=== PATIENT | female | born 1980 | race Caucasian/White ===

== ENCOUNTER 2016-07-21 13:23 | Emergency (ER) | payer OTHER ==
--- NOTE | 2016-07-21 15:48 | DIAGNOSTIC IMAGING REPORT ---
PROCEDURE: CT UPPER EXT W/CONTRAST- LEFT INDICATION: PAIN upper extremity abscess TECHNIQUE: Axial CT images obtained through the left upper extremity following uncomplicated administration of 125 ml Isovue through 100 IV contrast. Coronal and sagittal reformations were created. COMPARISON: None. FINDINGS: Intramuscular, ill-defined, hypodense phlegmon beginning at the antecubital fossa. Within the biceps muscle, extending cranial to the antecubital fossa for length of approximately 8.5 cm, there is a more well defined, peripherally enhancing, encapsulated fluid collection measuring approximately 8.5 cm in length by 3.7 cm in width and 1.8 cm in depth. The fluid collection is lateral to the neurovascular bundle. Proximal to this fluid collection, there is ill-defined low density surrounding the neurovascular bundle, cecilia fascial and intramuscular inflammation and thickening involving the anterior, medial, and posterior muscle fascia, and moderate subcutaneous fat stranding to the level of the shoulder. In the axilla, there are multiple enlarged reactive lymph nodes. Deep veins appear grossly patent. Normal osseous structures. IMPRESSION: 1. 8.5 cm intramuscular abscess within the distal aspect of the biceps muscle. 2. There is inflammation of the entire biceps muscle and fascia. 3. Reactive axillary adenopathy. 4. Discussed with Micaela Jones in the emergency room.
--- NOTE | 2016-07-21 17:04 | ED NURSING NOTES ---
Clinical Report - Nurses [facility] [address] [place] [address] 07/21/2016 13:32 Patient: MIGNON SIDDIQI TRIAGE Triage time 13:39 Jul 21 2016. Chief Complaint: LEFT UPPER EXTREMITY PAIN, SWELLING and REDNESS. Location of symptoms- left arm (pt reports quitting heroin Easter, "I've given up the drug, just not the needle" pt has swelling to left upper arm, pt states "My arm was dirty from working in the garden and I knew right away I was going to get an infection"). Alert. No acute distress. SEPSIS SCREEN: Sepsis Screen: negative. Infection suspected/documented. Heart rate greater than 90 (PROJECT SCHEDULER at bedside). [place] COMA SCORE: [place] Coma Scale: 15- eyes open spontaneously (4); best verbal response- oriented x 4 (5); best motor response- obeys commands (6). --13:51 Nidia Bennett R.N. 13:39 07/21/16. BP: 112/49. HR: 102. RR: 17. O2 saturation: 100%. Temp: 98.9 F. Pain level now: 810. --13:51 Nidia Bennett R.N. Weight: 64.4 kg stated. Height/Length: 66 inches Per Patient. BMI: 22.9. --13:50 Nidia Bennett R.N. Medications LamoTRIgine Oral 75 mg, daily. --13:42 Nidia Bennett R.N. Sertraline HCl Oral 200 mg, daily. --13:43 Nidia Bennett R.N. Medication/allergy information source: the patient. --13:51 Nidia Bennett R.N. Allergies None. --13:43 Nidia Bennett R.N. History Arrived by private vehicle. Historian: patient. Accompanied by family. Location of injuries: left arm. Treatment SCALER: (aleve). PAST MEDICAL HX: Tetanus status: up-to-date. Immunizations: up-to-date. Last normal menstrual period was 6 weeks ago- 6 weeks. No contraception. SOCIAL HX: Light tobacco smoker- less than 1/2 a pack per day. History of heavy IV drug use: heroin, methamphetamines, marijuana. No alcohol use. No infectious disease exposure. ABUSE ASSESSMENT: No report of abuse. SELF HARM ASSESSMENT: A self harm assessment was performed. The patient answered "no" to the question "Have you recently felt down, depressed, or hopeless?", "Have you noticed less interest or pleasure in doing things?", "Do you have thoughts of harming or killing yourself?", "Are you here because you tried to hurt yourself?", "Have you ever tried to hurt yourself before today?", "Have you recently had thoughts about harming or killing others?" and "Do you have any dangerous items in your possession?". FALL RISK ASSESSMENT: Fall risk assessment completed. No fall risk identified. NUTRITIONAL RISK ASSESSMENT: The nutritional risk assessment revealed no deficiencies. FUNCTIONAL ASSESSMENT: Functional assessment: no impairments noted. LEARNING NEEDS ASSESSMENT: The learning needs assessment revealed no barriers. SKIN INTEGRITY ASSESSMENT: Skin integrity risk assessment completed. No skin integrity risk identified. --13:51 Nidia Bennett R.N. PROBLEMS: Depression. Cellulitis. MRSA Infection. Vaginitis. High risk preg, twins . Anxiety . Hip dysplasia, defect. . --13:44 Nidia Bennett R.N. ADDITIONAL SURGERIES: . Hip Surgery. Shoulder Surgery. --13:44 Nidia Bennett R.N. Interventions ID band on patient. --13:51 Nidia Bennett R.N. NURSING PROGRESS NOTES 14:13 07/21/2016 Site #1 started via IV in the right forearm with an 20g angiocath; one attempt. Blood drawn: rainbow set and cultures x1. Labeled in the presence of the patient and sent to the lab. Saline lock flushed with 10 mL saline. --14:18 Nidia Bennett R.N. ( Pt up to bathroom twice unable to provided urine speci at this time, mom remains at bedside, waiting serum preg prior to CT, pt reports possibility of . care released). --14:41 Nidia Bennett R.N. 15:16 07/21/2016 Toradol IVP 30 mg given over 30 second(s) via site #1. Allergies verified and confirmed 5 rights. IV patency established. IV site checked: no pain, redness, or swelling. IV flushed thoroughly pre- and post-medication administration. IVP given by RN. --15:16 Janina Calvo R.N. 15:19 07/21/2016 Started 1 gm of Vancomycin IVPB in bag #1 200 mL; at 200 mL/hr over 1 hour(s) via site #1 via IV pump. Allergies verified and confirmed 5 rights. IV patency established. IV site checked: no pain, redness, or swelling. IV flushed thoroughly pre- and post-medication administration. --15:19 Janina Calvo R.N. 15:20 07/21/16. BP: 113/59 (regular adult cuff) taken on the right arm, via an automated monitor, while lying. HR: 96. RR: 17. O2 saturation: 98% on room air. Temp: 98.8 F (oral). Pain level now: 12/14. --15:25 Janina Calvo R.N. Reassurance given. The patient is calm. GENERAL / NEURO / PSYCH: The patient reports pain. Denies numbness or tingling. Alert. Oriented X 4. GI / : Denies nausea or vomiting. Two patient identifiers checked. Call light placed in reach. --15:25 Janina Calvo R.N. 15:54 07/21/2016 Site #1 reassessed; patent, infusing well and no signs of infection or infiltration. --15:54 Janina Calvo R.N. Extremity elevated. Reassurance given. The patient is calm. Overall patient status is the same- she states feels the same. ( Pt was aware and attempted to be kept NPO, but pt decided to "eat 1/2 orange because I was hungry" updated on the need for surgery, asked pt to be NPO again. PROJECT SCHEDULER Robert aware, will monitor). GENERAL / NEURO / PSYCH: The patient reports pain. Alert. Oriented X 4. GI / : Denies nausea or vomiting. --15:58 Janina Calvo R.N. 16:56 07/21/16. BP: 124/78 (regular adult cuff) taken on the right arm, via an automated monitor, while sitting. HR: 87. RR: 15. O2 saturation: 98% on room air. Temp: 98.8 F. Pain level now: 11/14. --16:56 Janina Calvo R.N. Reassurance given. The patient is calm and resting quietly. Overall patient status is the same- she states feels the same. ( waiting on transfer to [facility]). GENERAL / NEURO / PSYCH: The patient reports pain. GI / : Denies nausea. Patient identifiers checked. Call light placed in reach. --16:56 Janina Calvo R.N. 16:32 07/21/2016 Vancomycin IVPB Discontinued: bag #1 infused. Total amount infused: 200 mL. IV patency established. IV site checked: no pain, redness, or swelling. IV flushed thoroughly. --16:57 Janina Calvo R.N. 16:55 07/21/2016 Zofran (Ondansetron HCl) IVP 4 mg given over 2 minute(s) via site #1. Allergies verified and confirmed 5 rights. IV patency established. IV site checked: no pain, redness, or swelling. IV flushed thoroughly pre- and post-medication administration. IVP given by RN. --16:55 Janina Calvo R.N. 16:55 07/21/2016 Dilaudid (HYDROmorphone HCl PF) IVP 1 mg given over 30 second(s) via site #1. Allergies verified, confirmed 5 rights and sedative warning given to the patient. IV patency established. IV site checked: no pain, redness, or swelling. IV flushed thoroughly pre- and post-medication administration. IVP given by RN. --16:55 Janina Calvo R.N. 17:30 07/21/16. BP: 95/57. HR: 87. RR: 18. O2 saturation: 100%. Temp: 98.4 F. Pain level now: 09/13. --17:34 Colette Denise R.N. 17:37 COBRA form signed by pt , EMS crew here to transport pt. --17:37 Colette Denise R.N. 15:42 07/21/2016 Toradol IVP Response: no adverse reaction symptoms are the same. The patient feels the same. --18:07 Janina Calvo R.N. 17:40 07/21/2016 Zofran IVP Response: no adverse reaction symptoms have improved. --18:05 Janina Calvo R.N. 17:41 07/21/2016 Dilaudid IVP Response: no adverse reaction pain is improving. Symptoms have improved the patient feels the same. --18:06 Janina Calvo R.N. DISPOSITION / DISCHARGE 17:45 07/21/2016 Site #1 reassessed; patent, infusing well and no signs of infection or infiltration. Good blood return present. --18:00 Janina Calvo R.N. Departure time: 1753 PM. Condition at departure: unchanged and stable. The goals identified in the patient's plan of care were met. Transferred to [facility]. Summary of care provided to transport team and transfer facility via paper and fax (1753 PM). Transported via ambulance by nurse. Report was given to a nurse via a phone call. Report included patient's care, treatment, medications, reviewed medication reconcilliation, and condition (including any recent changes or anticipated changes). All questions were answered. Report was acknowledged and care was transferred. Mother notified of admission. ( Pt transferred via [facility] to [facility] via stretcher safely, NPO status tried to be maintained by me and facility but pt states "we are starving her and unable to smoke" offered a patch but refuses. IV site intact. VSS. Report given to rail transportation tabeler Zarin and receiving facility Aakash Hinojosa at ED at [facility]). FALL RISK ASSESSMENT: Fall risk assessment completed. No fall risk identified. --18:04 Janina Calvo R.N. 17:45 07/21/16. BP: 95/57 (regular adult cuff) taken on the right arm, via an automated monitor, while sitting. HR: 87. RR: 18. O2 saturation: 98% on room air. Temp: 98.4 F (oral). Pain level now: 09/13. --18:04 Janina Calvo R.N. Locked/Released at 07/21/2016 18:07 by Janina Calvo R.N.
--- NOTE | 2016-07-21 17:04 | ED CLINICAL REPORT ---
Clinical Report - Physicians/Mid Levels [facility] [address] [place] [address] 07/21/2016 13:32 Patient: MINGON SIDDIQI Time Seen: 1338; upon arrival, initial patient contact, initial documentation, patient care assumed. Arrived- By private vehicle. Historian- patient. HISTORY OF PRESENT ILLNESS Chief Complaint: TENDER AREA. This started about 3 days ago and is still present and worsening. Not itchy or burning. It is described as painful. It has been located on the left arm. A cause has been identified (shot up with iv heroin x4 days ago, and states as soon as she did it she knew arm would get infected because it felt different). Similar symptoms previously: Occasionally, milder. Recent medical care: Not recently seen/assessed. REVIEW OF SYSTEMS No fever, difficulty breathing, chest pain, diarrhea or vomiting. All systems otherwise negative, except as recorded above. PAST HISTORY See nurses notes. PROBLEMS: Depression. Cellulitis. MRSA Infection. Vaginitis. High risk preg, twins . Anxiety . Hip dysplasia, defect. . --13:44 Nidia Bennett RValentín. ADDITIONAL SURGERIES: . Hip Surgery. Shoulder Surgery. --13:44 Nidia Bennett RValentín. SOCIAL HISTORY Light tobacco smoker. History of heavy IV drug use: heroin, methamphetamines, marijuana. Recently used drugs days ago. No alcohol use. No recent travel. Is a local resident. FAMILY HISTORY Negative. ADDITIONAL NOTES The nursing notes have been reviewed with agreement regarding the chief complaint, HPI, ROS, PMH and patient medications and allergies. PHYSICAL EXAM Vital Signs: 07/21/2016 13:39 BP: 112/49. HR: 102. RR: 17. O2 saturation: 100%. Temp: 98.9 F. Pain level now: 8/10. Have been reviewed as abnormal and appear to be correct. Blood pressure normal. Tachycardic. Respiratory rate normal. Temperature normal. Oxygen saturation normal. Appearance: Alert. Oriented X3. No acute distress. Eyes: Pupils equal, round and reactive to light. Conjunctivae and eyelids normal. ENT: Nose normal. Neck: Neck supple. CVS: Normal heart rate and rhythm. Heart sounds normal. Respiratory: No respiratory distress. Breath sounds normal. Chest nontender. Abdomen: Nontender. No organomegaly. Skin: Skin warm and dry. Abnormal skin color. No rash. Normal skin turgor. Large area of cellulitis with tenderness, erythema and warmth to left arm (L upper arm appears twice the size as R, circumferential erythema). No lymphangitis. Extremities: Normal external inspection. Extremities nontender. Neuro: Oriented X 3. No motor deficit. No sensory deficit. LABS, X-RAYS, AND EKG Laboratory Tests: UA-Culture if indicated: (VAN: 07/21/2016 15:20) ( [facility] 07/21/2016 15:42) Final results Test Result Flag Units (Reference) URINE COLOR STRAW URINE APPEARANCE CLEAR URINE GLUCOSE NEGATIVE (NEGATIVE) URINE BILIRUBIN NEGATIVE (NEGATIVE) URINE KETONE NEGATIVE (NEGATIVE) URINE SPECIFIC GRAVITY <= 1.005 L (1.010-1.030) URINE PH 5.5 (5.0-8.0) URINE PROTEIN NEGATIVE (NEGATIVE) URINE UROBILINOGEN 0.2 EU/dL (0.2-1.0) URINE NITRITE NEGATIVE (NEGATIVE) URINE BLOOD TRACE-INTACT (NEGATIVE) URINE LEUK ESTERASE NEGATIVE (NEGATIVE) URINE RBC RARE rbc/hpf (0-1) URINE WBC NONE SEEN wbc/hpf (0-1) URINE EPITHELIAL CELLS RARE EPI/hpf (0-5) URINE BACTERIA NONE SEEN (NONE SEEN) URINE COMMENT CULT NOT INDICATED URINE CULTURES ARE SET-UP BASED ON THE FOLLOWING CRITERIA:POSITIVE NITRITEPOSITIVE LEUKOCYTE ESTERASEGREATER THAN 10 WHITE BLOOD CELLSMODERATE (2+) OR GREATER BACTERIA Serum Qualitative: (VAN: 07/21/2016 14:11) ( [facility] 07/21/2016 14:41) Final results Test Result Flag Units (Reference) , SERUM NEGATIVE CBC w Diff: (VAN: 07/21/2016 14:11) ( [facility] 07/21/2016 14:32) Final results Test Result Flag Units (Reference) WHITE BLOOD COUNT 22.5 H K/uL (4.5-11.5) RED BLOOD COUNT 4.19 M/uL (4.00-5.20) HEMOGLOBIN 12.0 gm/dL (12.0-16.0) HEMATOCRIT 34.9 L % (36.0-46.0) MEAN CELL VOLUME 83 fL (80-100) MEAN CORPUSCULAR HGB 29 pg (26-34) MEAN CORPUSCULAR HGB CONC 34 g/dL (31-37) RED CELL DISTRIBUTION WIDTH 14.0 % (11.6-14.8) PLATELET COUNT 229 K/uL (150-400) NEUTROPHIL % 86.5 H % (50-75) LYMPH % 8.3 L % (25-40) MONO % 4.9 % (3-14) EOSINOPHIL % 0.3 % (0-4) BASOPHIL % 0 % (0-2) Lactate, Serum: (VAN: 07/21/2016 14:11) ( [facility] 07/21/2016 14:56) Final results Test Result Flag Units (Reference) LACTIC ACID 1.4 mmol/L (0.4-2.0) [id number]: (VAN: 07/21/2016 14:11) ( [facility] 07/21/2016 15:09) Final results Test Result Flag Units (Reference) PROCALCITONIN 0.9 H ng/mL (0-0.5) PCT Concentration: Interpretation : Risk/option for action PCT <=0.5 ng/mL : Systemic : Low risk forinfection(sepsis): progression to severeis not likely. : systemic infection.Local bacterial : CAUTION-PCT levelsinfection is : below 0.5 ng/mL do notpossible. : exclude an infection,because localizedinfections (withoutsystemic signs) may beassociated with suchlow levels. If PCT ismeasured very earlyafter a bacterialchallenge (usually <6hours), these valuesmay still be low. Inthis case PCT shouldbe re-assessed 6-24hours later. PCT >0.5 and : Systemic infection: Moderate risk for<= 2 ng/mL : (sepsis) is : progression to severepossible, but : systemic infection.other conditions : The patient should beare known to : closely monitoredelevate PCT. : both clinically andby re-assessing PCTwithin 6-24 hours. PCT > 2 ng/mL : Systemic infection: High risk for(sepsis) is likely: progression to severeunless other : systemic infection.causes are known. : PCT >= 10 ng/mL : Important systemic: High likelihood ofinflammatory : severe sepsis orresponse, almost : septic shock.exclusively due to:severe bacterial :sepsis or septic :shock. : CMP: (VAN: 07/21/2016 14:11) ( MsgRcvd 07/21/2016 14:47) Final results Test Result Flag Units (Reference) GLUCOSE 77 mg/dL (70-110) BUN 12 mg/dL (7-18) CREATININE 0.8 mg/dL (0.6-1.3) Estimated GFR >60 mL/min Estimated GFR- >60 mL/min Note: Persistent reduction over 3 months in eGFR<60 mL/min/1.73 m2 defines CKD. Patients with eGFR values>=60 mL/min/1.73 m2 may also have CKD if evidence ofpersistent proteinuria. Additional information may be foundat www.[email or web address].org. SODIUM 135 L mmol/L (136-145) POTASSIUM 3.0 L mmol/L (3.5-5.1) CHLORIDE 98 mmol/L (98-107) CARBON DIOXIDE 26 mmol/L (21-32) CALCIUM 8.3 L mg/dL (8.5-10.1) TOTAL PROTEIN 7.4 g/dL (6.4-8.2) ALBUMIN 3.4 g/dL (3.3-5.0) BILIRUBIN, TOTAL 0.6 mg/dL (0.0-1.0) ALKALINE PHOSPHATASE 77 U/L (46-116) AST (SGOT) 24 U/L (15-37) ALT (SGPT) 30 U/L (12-78) . Note - Tests: (CT L Upper Ext IMPRESSION: 1. 8.5 cm intramuscular abscess within the distal aspect of the biceps muscle. 2. There is inflammation of the entire biceps muscle and fascia. 3. Reactive axillary adenopathy. 4. Discussed with Micaela Jones in the emergency room. Electronically Final signed by:Lin Lee MD 07/21/2016 3:48:02 PM). PROGRESS AND PROCEDURES Course of Care: had discussion with pt upon exam about admit to hospital would be needed for iv abx and more tx, pt did agree to stay, but hesitant 1525. pt updated with current lab results, awaiting ct results to determine if pt would be admitted to surgery or medicine 1550. Spoke to Dr Simmons re admit, says pt should go to general surgery not ortho 1553. Spoke to surgeon, Dr Larios, willing to consult, but wants hospitalist to admit 1556. Spoke to hospitalist Dr Abrams, no more admits, he is full having film or tape librarian contact [facility] to see about transfer 1615. Will be at least hour before [facility] knows if they have beds, currently full, awaiting dc's Spoke to hotel houseman Bill at [facility] re transfer, will check with surgeon and call us back, having film or tape librarian push ct images 16:50 07/21/16. pt updated with transfer plan, ct results, need for surgery 1655. Spoke to Mark at [facility], and Dr. Zhou, ER MD, pt's case reviewed with him and he will accept and consult surgery if needed, pt will be er to er transfer transfer form completed and asked [facility] to call ems for transport 1740. transport team here. 07/21/2016 15:20 BP: 113/59. HR: 96. RR: 17. O2 saturation: 98%. Temp: 98.8 F. Pain level now: 10/10. Vital Signs: have been reviewed as normal and appear to be correct. Patient and family counseled in person regarding the patient's stable condition, test results, diagnosis and need for admission and surgery. Differential Diagnosis: Other possible considerations: cellulitis, abscess, mrsa, substance abuse, compartment syndrome, sepsis. Above considerations are based on history, physical exam, reassessment, laboratory data and other information. Differential diagnosis was discussed with patient. Disposition: Benefits, risks and alternatives to transfer explained to patient and family. Transferred to [facility]. Summary of care provided to transport team and transfer facility via paper and digital media. 17:04. Condition: good and stable. CLINICAL IMPRESSION 07/21/2016 16:56 BP: 124/78. HR: 87. RR: 15. O2 saturation: 98%. Temp: 98.8 F. Pain level now: 9/10. Vital Signs: have been reviewed as normal and appear to be correct. Single deep abscess to the left upper extremity. (Electronically signed by Micaela Jones A.R.N.P. 07/21/2016 21:40)
--- NOTE | 2016-07-21 17:04 | ED CLINICAL REPORT ---
Clinical Report - Physicians/Mid Levels [facility] [address] [place] [address] 07/21/2016 13:32 Patient: MIGNON SIDDIQI Time Seen: 1338; upon arrival, initial patient contact, initial documentation, patient care assumed. Arrived- By private vehicle. Historian- patient. HISTORY OF PRESENT ILLNESS Chief Complaint: TENDER AREA. This started about 3 days ago and is still present and worsening. Not itchy or burning. It is described as painful. It has been located on the left arm. A cause has been identified (shot up with iv heroin x4 days ago, and states as soon as she did it she knew arm would get infected because it felt different). Similar symptoms previously: Occasionally, milder. Recent medical care: Not recently seen/assessed. REVIEW OF SYSTEMS No fever, difficulty breathing, chest pain, diarrhea or vomiting. All systems otherwise negative, except as recorded above. PAST HISTORY See nurses notes. PROBLEMS: Depression. Cellulitis. MRSA Infection. Vaginitis. High risk preg, twins . Anxiety . Hip dysplasia, defect. . --13:44 Nidia Bennett RValentín. ADDITIONAL SURGERIES: . Hip Surgery. Shoulder Surgery. --13:44 Nidia Bennett RValentín. SOCIAL HISTORY Light tobacco smoker. History of heavy IV drug use: heroin, methamphetamines, marijuana. Recently used drugs days ago. No alcohol use. No recent travel. Is a local resident. FAMILY HISTORY Negative. ADDITIONAL NOTES The nursing notes have been reviewed with agreement regarding the chief complaint, HPI, ROS, PMH and patient medications and allergies. PHYSICAL EXAM Vital Signs: 07/21/2016 13:39 BP: 112/49. HR: 102. RR: 17. O2 saturation: 100%. Temp: 98.9 F. Pain level now: 8/10. Have been reviewed as abnormal and appear to be correct. Blood pressure normal. Tachycardic. Respiratory rate normal. Temperature normal. Oxygen saturation normal. Appearance: Alert. Oriented X3. No acute distress. Eyes: Pupils equal, round and reactive to light. Conjunctivae and eyelids normal. ENT: Nose normal. Neck: Neck supple. CVS: Normal heart rate and rhythm. Heart sounds normal. Respiratory: No respiratory distress. Breath sounds normal. Chest nontender. Abdomen: Nontender. No organomegaly. Skin: Skin warm and dry. Abnormal skin color. No rash. Normal skin turgor. Large area of cellulitis with tenderness, erythema and warmth to left arm (L upper arm appears twice the size as R, circumferential erythema). No lymphangitis. Extremities: Normal external inspection. Extremities nontender. Neuro: Oriented X 3. No motor deficit. No sensory deficit. LABS, X-RAYS, AND EKG Laboratory Tests: UA-Culture if indicated: (VAN: 07/21/2016 15:20) ( [facility] 07/21/2016 15:42) Final results Test Result Flag Units (Reference) URINE COLOR STRAW URINE APPEARANCE CLEAR URINE GLUCOSE NEGATIVE (NEGATIVE) URINE BILIRUBIN NEGATIVE (NEGATIVE) URINE KETONE NEGATIVE (NEGATIVE) URINE SPECIFIC GRAVITY <= 1.005 L (1.010-1.030) URINE PH 5.5 (5.0-8.0) URINE PROTEIN NEGATIVE (NEGATIVE) URINE UROBILINOGEN 0.2 EU/dL (0.2-1.0) URINE NITRITE NEGATIVE (NEGATIVE) URINE BLOOD TRACE-INTACT (NEGATIVE) URINE LEUK ESTERASE NEGATIVE (NEGATIVE) URINE RBC RARE rbc/hpf (0-1) URINE WBC NONE SEEN wbc/hpf (0-1) URINE EPITHELIAL CELLS RARE EPI/hpf (0-5) URINE BACTERIA NONE SEEN (NONE SEEN) URINE COMMENT CULT NOT INDICATED URINE CULTURES ARE SET-UP BASED ON THE FOLLOWING CRITERIA:POSITIVE NITRITEPOSITIVE LEUKOCYTE ESTERASEGREATER THAN 10 WHITE BLOOD CELLSMODERATE (2+) OR GREATER BACTERIA Serum Qualitative: (VAN: 07/21/2016 14:11) ( [facility] 07/21/2016 14:41) Final results Test Result Flag Units (Reference) , SERUM NEGATIVE CBC w Diff: (VAN: 07/21/2016 14:11) ( [facility] 07/21/2016 14:32) Final results Test Result Flag Units (Reference) WHITE BLOOD COUNT 22.5 H K/uL (4.5-11.5) RED BLOOD COUNT 4.19 M/uL (4.00-5.20) HEMOGLOBIN 12.0 gm/dL (12.0-16.0) HEMATOCRIT 34.9 L % (36.0-46.0) MEAN CELL VOLUME 83 fL (80-100) MEAN CORPUSCULAR HGB 29 pg (26-34) MEAN CORPUSCULAR HGB CONC 34 g/dL (31-37) RED CELL DISTRIBUTION WIDTH 14.0 % (11.6-14.8) PLATELET COUNT 229 K/uL (150-400) NEUTROPHIL % 86.5 H % (50-75) LYMPH % 8.3 L % (25-40) MONO % 4.9 % (3-14) EOSINOPHIL % 0.3 % (0-4) BASOPHIL % 0 % (0-2) Lactate, Serum: (VAN: 07/21/2016 14:11) ( [facility] 07/21/2016 14:56) Final results Test Result Flag Units (Reference) LACTIC ACID 1.4 mmol/L (0.4-2.0) [id number]: (VAN: 07/21/2016 14:11) ( [facility] 07/21/2016 15:09) Final results Test Result Flag Units (Reference) PROCALCITONIN 0.9 H ng/mL (0-0.5) PCT Concentration: Interpretation : Risk/option for action PCT <=0.5 ng/mL : Systemic : Low risk forinfection(sepsis): progression to severeis not likely. : systemic infection.Local bacterial : CAUTION-PCT levelsinfection is : below 0.5 ng/mL do notpossible. : exclude an infection,because localizedinfections (withoutsystemic signs) may beassociated with suchlow levels. If PCT ismeasured very earlyafter a bacterialchallenge (usually <6hours), these valuesmay still be low. Inthis case PCT shouldbe re-assessed 6-24hours later. PCT >0.5 and : Systemic infection: Moderate risk for<= 2 ng/mL : (sepsis) is : progression to severepossible, but : systemic infection.other conditions : The patient should beare known to : closely monitoredelevate PCT. : both clinically andby re-assessing PCTwithin 6-24 hours. PCT > 2 ng/mL : Systemic infection: High risk for(sepsis) is likely: progression to severeunless other : systemic infection.causes are known. : PCT >= 10 ng/mL : Important systemic: High likelihood ofinflammatory : severe sepsis orresponse, almost : septic shock.exclusively due to:severe bacterial :sepsis or septic :shock. : CMP: (VAN: 07/21/2016 14:11) ( MsgRcvd 07/21/2016 14:47) Final results Test Result Flag Units (Reference) GLUCOSE 77 mg/dL (70-110) BUN 12 mg/dL (7-18) CREATININE 0.8 mg/dL (0.6-1.3) Estimated GFR >60 mL/min Estimated GFR- >60 mL/min Note: Persistent reduction over 3 months in eGFR<60 mL/min/1.73 m2 defines CKD. Patients with eGFR values>=60 mL/min/1.73 m2 may also have CKD if evidence ofpersistent proteinuria. Additional information may be foundat www.kidney.org. SODIUM 135 L mmol/L (136-145) POTASSIUM 3.0 L mmol/L (3.5-5.1) CHLORIDE 98 mmol/L (98-107) CARBON DIOXIDE 26 mmol/L (21-32) CALCIUM 8.3 L mg/dL (8.5-10.1) TOTAL PROTEIN 7.4 g/dL (6.4-8.2) ALBUMIN 3.4 g/dL (3.3-5.0) BILIRUBIN, TOTAL 0.6 mg/dL (0.0-1.0) ALKALINE PHOSPHATASE 77 U/L (46-116) AST (SGOT) 24 U/L (15-37) ALT (SGPT) 30 U/L (12-78) . Note - Tests: (CT L Upper Ext IMPRESSION: 1. 8.5 cm intramuscular abscess within the distal aspect of the biceps muscle. 2. There is inflammation of the entire biceps muscle and fascia. 3. Reactive axillary adenopathy. 4. Discussed with Micaela Jones in the emergency room. Electronically Final signed by:Lin Lee MD 07/21/2016 3:48:02 PM). PROGRESS AND PROCEDURES Course of Care: had discussion with pt upon exam about admit to hospital would be needed for iv abx and more tx, pt did agree to stay, but hesitant 1525. pt updated with current lab results, awaiting ct results to determine if pt would be admitted to surgery or medicine 1550. Spoke to Dr Simmons re admit, says pt should go to general surgery not ortho 1553. Spoke to surgeon, Dr Larios, willing to consult, but wants hospitalist to admit 1556. Spoke to hospitalist Dr Abrams, no more admits, he is full having bereavement coordinator contact [facility] to see about transfer 1615. Will be at least hour before [facility] knows if they have beds, currently full, awaiting dc's Spoke to transfer and pumphouse operator Bill at [facility] re transfer, will check with surgeon and call us back, having bereavement coordinator push ct images 16:50 07/21/16. pt updated with transfer plan, ct results, need for surgery 1655. Spoke to Mark at [facility], and Dr. Zhou, ER MD, pt's case reviewed with him and he will accept and consult surgery if needed, pt will be er to er transfer [place] [facility] 1740. transport team here. 07/21/2016 15:20 BP: 113/59. HR: 96. RR: 17. O2 saturation: 98%. Temp: 98.8 F. Pain level now: 10/10. Vital Signs: have been reviewed as normal and appear to be correct. Patient and family counseled in person regarding the patient's stable condition, test results, diagnosis and need for admission and surgery. Differential Diagnosis: Other possible considerations: cellulitis, abscess, mrsa, substance abuse, compartment syndrome, sepsis. Above considerations are based on history, physical exam, reassessment, laboratory data and other information. Differential diagnosis was discussed with patient. Disposition: Benefits, risks and alternatives to transfer explained to patient and family. Transferred to [facility]. Summary of care provided to transport team and transfer facility via paper and digital media. 17:04. Condition: good and stable. CLINICAL IMPRESSION 07/21/2016 16:56 BP: 124/78. HR: 87. RR: 15. O2 saturation: 98%. Temp: 98.8 F. Pain level now: 9/10. Vital Signs: have been reviewed as normal and appear to be correct. Single deep abscess to the left upper extremity. (Electronically signed by Micaela Jones A.R.N.P. 07/21/2016 21:40)
--- NOTE | 2016-07-21 17:04 | ED NURSING NOTES ---
Clinical Report - Nurses [facility] [address] [place] [address] 07/21/2016 13:32 Patient: MIGNON SIDDIQI TRIAGE Triage time 13:39 Jul 21 2016. Chief Complaint: LEFT UPPER EXTREMITY PAIN, SWELLING and REDNESS. Location of symptoms- left arm (pt reports quitting heroin Easter, "I've given up the drug, just not the needle" pt has swelling to left upper arm, pt states "My arm was dirty from working in the garden and I knew right away I was going to get an infection"). Alert. No acute distress. SEPSIS SCREEN: Sepsis Screen: negative. Infection suspected/documented. Heart rate greater than 90 (DORMITORY SUPERVISOR at bedside). SYDNEY COMA SCORE: Marana Coma Scale: 15- eyes open spontaneously (4); best verbal response- oriented x 4 (5); best motor response- obeys commands (6). --13:51 Nidia Bennett R.N. 13:39 07/21/16. BP: 112/49. HR: 102. RR: 17. O2 saturation: 100%. Temp: 98.9 F. Pain level now: 810. --13:51 Nidia Bennett R.N. Weight: 64.4 kg stated. Height/Length: 66 inches Per Patient. BMI: 22.9. --13:50 Nidia Bennett R.N. Medications LamoTRIgine Oral 75 mg, daily. --13:42 Nidia Bennett R.N. Sertraline HCl Oral 200 mg, daily. --13:43 Nidia Bennett R.N. Medication/allergy information source: the patient. --13:51 Nidia Bennett R.N. Allergies None. --13:43 Nidia Bennett R.N. History Arrived by private vehicle. Historian: patient. Accompanied by family. Location of injuries: left arm. Treatment TOOL MAINTENANCE WORKER: (aleve). PAST MEDICAL HX: Tetanus status: up-to-date. Immunizations: up-to-date. Last normal menstrual period was 6 weeks ago- 6 weeks. No contraception. SOCIAL HX: Light tobacco smoker- less than 1/2 a pack per day. History of heavy IV drug use: heroin, methamphetamines, marijuana. No alcohol use. No infectious disease exposure. ABUSE ASSESSMENT: No report of abuse. SELF HARM ASSESSMENT: A self harm assessment was performed. The patient answered "no" to the question "Have you recently felt down, depressed, or hopeless?", "Have you noticed less interest or pleasure in doing things?", "Do you have thoughts of harming or killing yourself?", "Are you here because you tried to hurt yourself?", "Have you ever tried to hurt yourself before today?", "Have you recently had thoughts about harming or killing others?" and "Do you have any dangerous items in your possession?". FALL RISK ASSESSMENT: Fall risk assessment completed. No fall risk identified. NUTRITIONAL RISK ASSESSMENT: The nutritional risk assessment revealed no deficiencies. FUNCTIONAL ASSESSMENT: Functional assessment: no impairments noted. LEARNING NEEDS ASSESSMENT: The learning needs assessment revealed no barriers. SKIN INTEGRITY ASSESSMENT: Skin integrity risk assessment completed. No skin integrity risk identified. --13:51 Nidia Bennett R.N. PROBLEMS: Depression. Cellulitis. MRSA Infection. Vaginitis. High risk preg, twins . Anxiety . Hip dysplasia, defect. . --13:44 Nidia Bennett R.N. ADDITIONAL SURGERIES: . Hip Surgery. Shoulder Surgery. --13:44 Nidia Bennett R.N. Interventions ID band on patient. --13:51 Nidia Bennett R.N. NURSING PROGRESS NOTES 14:13 07/21/2016 Site #1 started via IV in the right forearm with an 20g angiocath; one attempt. Blood drawn: rainbow set and cultures x1. Labeled in the presence of the patient and sent to the lab. Saline lock flushed with 10 mL saline. --14:18 Nidia Bennett R.N. ( Pt up to bathroom twice unable to provided urine speci at this time, mom remains at bedside, waiting serum preg prior to CT, pt reports possibility of . care released). --14:41 Nidia Bennett R.N. 15:16 07/21/2016 Toradol IVP 30 mg given over 30 second(s) via site #1. Allergies verified and confirmed 5 rights. IV patency established. IV site checked: no pain, redness, or swelling. IV flushed thoroughly pre- and post-medication administration. IVP given by RN. --15:16 Janina Calvo R.N. 15:19 07/21/2016 Started 1 gm of Vancomycin IVPB in bag #1 200 mL; at 200 mL/hr over 1 hour(s) via site #1 via IV pump. Allergies verified and confirmed 5 rights. IV patency established. IV site checked: no pain, redness, or swelling. IV flushed thoroughly pre- and post-medication administration. --15:19 Janina Calvo R.N. 15:20 07/21/16. BP: 113/59 (regular adult cuff) taken on the right arm, via an automated monitor, while lying. HR: 96. RR: 17. O2 saturation: 98% on room air. Temp: 98.8 F (oral). Pain level now: 12/14. --15:25 Janina Calvo R.N. Reassurance given. The patient is calm. GENERAL / NEURO / PSYCH: The patient reports pain. Denies numbness or tingling. Alert. Oriented X 4. GI / : Denies nausea or vomiting. Two patient identifiers checked. Call light placed in reach. --15:25 Janina Calvo R.N. 15:54 07/21/2016 Site #1 reassessed; patent, infusing well and no signs of infection or infiltration. --15:54 Janina Calvo R.N. Extremity elevated. Reassurance given. The patient is calm. Overall patient status is the same- she states feels the same. ( Pt was aware and attempted to be kept NPO, but pt decided to "eat 1/2 orange because I was hungry" updated on the need for surgery, asked pt to be NPO again. DORMITORY SUPERVISOR Robert aware, will monitor). GENERAL / NEURO / PSYCH: The patient reports pain. Alert. Oriented X 4. GI / : Denies nausea or vomiting. --15:58 Janina Calvo R.N. 16:56 07/21/16. BP: 124/78 (regular adult cuff) taken on the right arm, via an automated monitor, while sitting. HR: 87. RR: 15. O2 saturation: 98% on room air. Temp: 98.8 F. Pain level now: 11/14. --16:56 Janina Calvo R.N. Reassurance given. The patient is calm and resting quietly. Overall patient status is the same- she states feels the same. ( waiting on transfer to [facility]). GENERAL / NEURO / PSYCH: The patient reports pain. GI / : Denies nausea. Patient identifiers checked. Call light placed in reach. --16:56 Janina Calvo R.N. 16:32 07/21/2016 Vancomycin IVPB Discontinued: bag #1 infused. Total amount infused: 200 mL. IV patency established. IV site checked: no pain, redness, or swelling. IV flushed thoroughly. --16:57 Janina Calvo R.N. 16:55 07/21/2016 Zofran (Ondansetron HCl) IVP 4 mg given over 2 minute(s) via site #1. Allergies verified and confirmed 5 rights. IV patency established. IV site checked: no pain, redness, or swelling. IV flushed thoroughly pre- and post-medication administration. IVP given by RN. --16:55 Janina Calvo R.N. 16:55 07/21/2016 Dilaudid (HYDROmorphone HCl PF) IVP 1 mg given over 30 second(s) via site #1. Allergies verified, confirmed 5 rights and sedative warning given to the patient. IV patency established. IV site checked: no pain, redness, or swelling. IV flushed thoroughly pre- and post-medication administration. IVP given by RN. --16:55 Janina Calvo R.N. 17:30 07/21/16. BP: 95/57. HR: 87. RR: 18. O2 saturation: 100%. Temp: 98.4 F. Pain level now: 09/13. --17:34 Colette Denise R.N. 17:37 COBRA form signed by pt , EMS crew here to transport pt. --17:37 Colette Denise R.N. 15:42 07/21/2016 Toradol IVP Response: no adverse reaction symptoms are the same. The patient feels the same. --18:07 Janina Calvo R.N. 17:40 07/21/2016 Zofran IVP Response: no adverse reaction symptoms have improved. --18:05 Janina Calvo R.N. 17:41 07/21/2016 Dilaudid IVP Response: no adverse reaction pain is improving. Symptoms have improved the patient feels the same. --18:06 Janina Calvo R.N. DISPOSITION / DISCHARGE 17:45 07/21/2016 Site #1 reassessed; patent, infusing well and no signs of infection or infiltration. Good blood return present. --18:00 Janina Calvo R.N. Departure time: 1753 PM. Condition at departure: unchanged and stable. The goals identified in the patient's plan of care were met. Transferred to [facility]. Summary of care provided to transport team and transfer facility via paper and fax (1753 PM). Transported via ambulance by nurse. Report was given to a nurse via a phone call. Report included patient's care, treatment, medications, reviewed medication reconcilliation, and condition (including any recent changes or anticipated changes). All questions were answered. Report was acknowledged and care was transferred. Mother notified of admission. ( Pt transferred via [facility] to [facility] via stretcher safely, NPO status tried to be maintained by me and facility but pt states "we are starving her and unable to smoke" offered a patch but refuses. IV site intact. VSS. Report given to specimen transporter Zarin and receiving facility Aakash Hinojosa at ED at [facility]). FALL RISK ASSESSMENT: Fall risk assessment completed. No fall risk identified. --18:04 Janina Calvo R.N. 17:45 07/21/16. BP: 95/57 (regular adult cuff) taken on the right arm, via an automated monitor, while sitting. HR: 87. RR: 18. O2 saturation: 98% on room air. Temp: 98.4 F (oral). Pain level now: 09/13. --18:04 Janina Calvo R.N. Locked/Released at 07/21/2016 18:07 by Janina Calvo R.N.
--- NOTE | 2016-07-21 17:05 | ED ORDER SUMMARY ---
..... Patient: MIGNON SIDDIQI OrderSheet [facility] VisitID: [id number] [address] [place] [address] 35y, F Registration Date/Time: 07/21/2016 ORDER SHEET Weight: 64.4 kg (stated) Allergies: None GENERAL ORDERS: Blood Culture (No) (N/A) Urgent (13:45 07/21/2016 HBivens A.R.N.P.) (Ack 13:48 LNations ER Tech1) (14:17 KPage-Kuchan R.N.) CT Upper Ext w/Contrast - Left Urgent (13:46 07/21/2016 HBivens A.R.N.P.) (Ack 13:48 LNations ER Tech1) (14:17 KPage-Kuchan R.N.) CBC w Diff Urgent (13:46 07/21/2016 HBivens A.R.N.P.) (Ack 13:48 LNations ER Tech1) (14:17 KPage-Kuchan R.N.) CMP Urgent (13:46 07/21/2016 HBivens A.R.N.P.) (Ack 13:48 LNations ER Tech1) (14:17 KPage-Kuchan R.N.) UA-Culture if indicated Urgent (13:46 07/21/2016 HBivens A.R.N.P.) (Ack 13:48 LNations ER Tech1) (15:28 EHassan R.N.) Urine Drug Screen Urgent (13:46 07/21/2016 HBivens A.R.N.P.) (Ack 13:48 LNations ER Tech1) (15:28 EHassan R.N.) Serum Qualitative Urgent (13:46 07/21/2016 HBivens A.R.N.P.) (Ack 13:48 LNations ER Tech1) (14:17 KPage-Kuchan R.N.) Lactate, Serum Urgent (13:46 07/21/2016 HBivens A.R.N.P.) (Ack 13:48 LNations ER Tech1) (14:17 KPage-Kuchan R.N.) PCT (Procalcitonin) Urgent (13:46 07/21/2016 HBivens A.R.N.P.) (Ack 13:48 LNations ER Tech1) (14:17 KPage-Kuchan R.N.) MEDICATION ORDERS: IV FLUIDS: IV Saline Lock (13:46 07/21/2016 HBivens A.R.N.P.) (14:18 KPage-Kuchan R.N.) Toradol IV 30 mg (NOW) (15:00 07/21/2016 HBivens A.R.N.P.) (Ack 15:11 DDean R.N.) (15:16 EHassan R.N.) Vancomycin IV 1 gm/200mL (NOW) (15:00 07/21/2016 HBivens A.R.N.P.) (Ack 15:11 DDean R.N.) (15:19 EHassan R.N.) Zofran IV 4 mg (NOW) (16:51 07/21/2016 HBivens A.R.N.P.) (16:55 EHassan R.N.) Dilaudid IV 1 mg (HIGH ALERT MEDICATION, NOW) (16:51 07/21/2016 HBivens A.R.N.P.) (16:55 EHassan R.N.) ORDER SHEET NOTES: [Electronically signed by Janina Calvo R.N. (18:07 07/21/2016)] [Electronically signed by Micaela Jones A.R.N.P. (21:40 07/21/2016)] [Electronically locked/signed by Janina Calvo R.N. (18:07 07/21/2016)]
--- NOTE | 2016-07-21 17:05 | ED ORDER SUMMARY ---
..... Patient: MIGNON SIDDIQI OrderSheet [facility] VisitID: [id number] [address] [place] [address] 35y, F Registration Date/Time: 07/21/2016 ORDER SHEET Weight: 64.4 kg (stated) Allergies: None GENERAL ORDERS: Blood Culture (No) (N/A) Urgent (13:45 07/21/2016 HBivens A.R.N.P.) (Ack 13:48 LNations ER Tech1) (14:17 KPage-Kuchan R.N.) CT Upper Ext w/Contrast - Left Urgent (13:46 07/21/2016 HBivens A.R.N.P.) (Ack 13:48 LNations ER Tech1) (14:17 KPage-Kuchan R.N.) CBC w Diff Urgent (13:46 07/21/2016 HBivens A.R.N.P.) (Ack 13:48 LNations ER Tech1) (14:17 KPage-Kuchan R.N.) CMP Urgent (13:46 07/21/2016 HBivens A.R.N.P.) (Ack 13:48 LNations ER Tech1) (14:17 KPage-Kuchan R.N.) UA-Culture if indicated Urgent (13:46 07/21/2016 HBivens A.R.N.P.) (Ack 13:48 LNations ER Tech1) (15:28 EHassan R.N.) Urine Drug Screen Urgent (13:46 07/21/2016 HBivens A.R.N.P.) (Ack 13:48 LNations ER Tech1) (15:28 EHassan R.N.) Serum Qualitative Urgent (13:46 07/21/2016 HBivens A.R.N.P.) (Ack 13:48 LNations ER Tech1) (14:17 KPage-Kuchan R.N.) Lactate, Serum Urgent (13:46 07/21/2016 HBivens A.R.N.P.) (Ack 13:48 LNations ER Tech1) (14:17 KPage-Kuchan R.N.) PCT (Procalcitonin) Urgent (13:46 07/21/2016 HBivens A.R.N.P.) (Ack 13:48 LNations ER Tech1) (14:17 KPage-Kuchan R.N.) MEDICATION ORDERS: IV FLUIDS: IV Saline Lock (13:46 07/21/2016 HBivens A.R.N.P.) (14:18 KPage-Kuchan R.N.) Toradol IV 30 mg (NOW) (15:00 07/21/2016 HBivens A.R.N.P.) (Ack 15:11 DDean R.N.) (15:16 EHassan R.N.) Vancomycin IV 1 gm/200mL (NOW) (15:00 07/21/2016 HBivens A.R.N.P.) (Ack 15:11 DDean R.N.) (15:19 EHassan R.N.) Zofran IV 4 mg (NOW) (16:51 07/21/2016 HBivens A.R.N.P.) (16:55 EHassan R.N.) Dilaudid IV 1 mg (HIGH ALERT MEDICATION, NOW) (16:51 07/21/2016 HBivens A.R.N.P.) (16:55 EHassan R.N.) ORDER SHEET NOTES: [Electronically signed by Janina Calvo R.N. (18:07 07/21/2016)] [Electronically signed by Micaela Jones A.R.N.P. (21:40 07/21/2016)] [Electronically locked/signed by Janina Calvo R.N. (18:07 07/21/2016)]
--- NOTE | 2016-07-21 21:41 | ED MED RECONCILIATION SUMMARY ---
Patient: MIGNON SIDDIQI Medication Reconciliation Report [facility] VisitID: [id number] [address] [place] [address] 35y, F Registration Date/Time: 07/21/2016 Weight: 64.4 kg Height/Length: 66 in. BMI: 22.9 ALLERGIES: None The patient's Home Medications are listed below: THE FOLLOWING MEDICATIONS NEED TO BE RECONCILED: LamoTRIgine Oral 75 mg, daily Sertraline HCl Oral 200 mg, daily The source(s) of the original Home Medication information: patient The following Medications were given to the patient in the Emergency Department: Toradol [IVP] IVP 30 mg, administered: 07/21/2016 3:16:00 PM Vancomycin [IVPB] IVPB bolus 0, then 1 gm 200 mL/hr, administered: 07/21/2016 3:19:00 PM Zofran [IVP] IVP 4 mg, administered: 07/21/2016 4:55:00 PM Dilaudid [IVP] IVP 1 mg, administered: 07/21/2016 4:55:00 PM The following Medications were prescribed to the patient: None.
--- NOTE | 2016-07-21 21:41 | ED MAR SUMMARY ---
..... Medication Administration Record [facility] [address] [place] [address] Patient: MIGNON SIDDIQI Visit ID: [id number] 35y, F Weight: 64.4 kg Height/Length: 66 in BMI: 22.9 ALLERGIES: None Given 15:16 07/21/2016 Janina Calvo R.N. Medication Administered: TORADOL [IVP], Dose: 30 mg IVP over 30 second(s), Site: #1 right forearm. Medication Ordered: Toradol IV 30 mg (NOW). Start 15:19 07/21/2016 Janina Calvo R.N., Stop 16:32 07/21/2016 Janina Calvo R.N. Medication Administered: VANCOMYCIN [IVPB], Dose: 1 gm IVPB over 1 hour(s), Rate: 200 mL/hr, Dispensed: 200 mL bag, Site: #1 right forearm. Medication Ordered: Vancomycin IV 1 gm/200mL (NOW). Given 16:55 07/21/2016 Janina Calvo R.N. Medication Administered: ZOFRAN [IVP] (ONDANSETRON HCL), Dose: 4 mg IVP over 2 minute(s), Site: #1. Medication Ordered: Zofran IV 4 mg (NOW). Given 16:55 07/21/2016 Janina Calvo R.N. Medication Administered: DILAUDID [IVP] (HYDROMORPHONE HCL PF), Dose: 1 mg IVP over 30 second(s), Site: #1. Medication Ordered: Dilaudid IV 1 mg (HIGH ALERT MEDICATION, NOW).
--- NOTE | 2016-07-21 21:41 | ED DISCHARGE INSTRUCTIONS ---
Patient: MIGNON SIDDIQI General Instructions [facility] VisitID: [id number] [address] [place] [address] 35y, F Registration Date/Time: 07/21/2016 07/21/2016 16:56 BP: 124/78. HR: 87. RR: 15. O2 saturation: 98%. Temp: 98.8 F. Pain level now: 9/10. Vital Signs: have been reviewed as normal and appear to be correct. Single deep abscess to the left upper extremity. (Electronically signed by Micaela Jones A.R.N.P. 07/21/2016 21:40)
--- NOTE | 2016-07-21 21:41 | ED MAR SUMMARY ---
..... Medication Administration Record [facility] [address] [place] [address] Patient: MIGNON SIDDIQI Visit ID: [id number] 35y, F Weight: 64.4 kg Height/Length: 66 in BMI: 22.9 ALLERGIES: None Given 15:16 07/21/2016 Janina Calvo R.N. Medication Administered: TORADOL [IVP], Dose: 30 mg IVP over 30 second(s), Site: #1 right forearm. Medication Ordered: Toradol IV 30 mg (NOW). Start 15:19 07/21/2016 Janina Calvo R.N., Stop 16:32 07/21/2016 Janina Calvo R.N. Medication Administered: VANCOMYCIN [IVPB], Dose: 1 gm IVPB over 1 hour(s), Rate: 200 mL/hr, Dispensed: 200 mL bag, Site: #1 right forearm. Medication Ordered: Vancomycin IV 1 gm/200mL (NOW). Given 16:55 07/21/2016 Janina Calvo R.N. Medication Administered: ZOFRAN [IVP] (ONDANSETRON HCL), Dose: 4 mg IVP over 2 minute(s), Site: #1. Medication Ordered: Zofran IV 4 mg (NOW). Given 16:55 07/21/2016 Janina Calvo R.N. Medication Administered: DILAUDID [IVP] (HYDROMORPHONE HCL PF), Dose: 1 mg IVP over 30 second(s), Site: #1. Medication Ordered: Dilaudid IV 1 mg (HIGH ALERT MEDICATION, NOW).
--- NOTE | 2016-07-21 21:41 | ED DISCHARGE INSTRUCTIONS ---
Patient: MIGNON SIDDIQI General Instructions [facility] VisitID: [id number] [address] [place] [address] 35y, F Registration Date/Time: 07/21/2016 07/21/2016 16:56 BP: 124/78. HR: 87. RR: 15. O2 saturation: 98%. Temp: 98.8 F. Pain level now: 9/10. Vital Signs: have been reviewed as normal and appear to be correct. Single deep abscess to the left upper extremity. (Electronically signed by Micaela Jones A.R.N.P. 07/21/2016 21:40)
--- NOTE | 2016-07-21 21:41 | ED MED RECONCILIATION SUMMARY ---
Patient: MIGNON SIDDIQI Medication Reconciliation Report [facility] VisitID: [id number] [address] [place] [address] 35y, F Registration Date/Time: 07/21/2016 Weight: 64.4 kg Height/Length: 66 in. BMI: 22.9 ALLERGIES: None The patient's Home Medications are listed below: THE FOLLOWING MEDICATIONS NEED TO BE RECONCILED: LamoTRIgine Oral 75 mg, daily Sertraline HCl Oral 200 mg, daily The source(s) of the original Home Medication information: patient The following Medications were given to the patient in the Emergency Department: Toradol [IVP] IVP 30 mg, administered: 07/21/2016 3:16:00 PM Vancomycin [IVPB] IVPB bolus 0, then 1 gm 200 mL/hr, administered: 07/21/2016 3:19:00 PM Zofran [IVP] IVP 4 mg, administered: 07/21/2016 4:55:00 PM Dilaudid [IVP] IVP 1 mg, administered: 07/21/2016 4:55:00 PM The following Medications were prescribed to the patient: None.
== END 2016-07-21 17:53 | disposition short-term general hospital (02) ==
LOC: ED SRH 13:23
DX: L02.414 Cutaneous abscess of left upper limb (principal); F17.200 Nicotine dependence, unspecified, uncomplicated